=== PATIENT | female | born 1960 | race African-American/Black ===

== ENCOUNTER 2016-10-09 12:14 | Emergency (ER) | payer MEDICAID ==
[~2016-10-09] VITALS: Ht 160 cm; Wt 72.1 kg
--- NOTE | 2016-10-09 12:14 | NUR ---
BROUGHT BACK TO BED #7 AND TRIAGED. REPORT GIVEN TO DALLIN
[2016-10-09 12:15] VITALS: BP 137/88; PULSE 107; RESP 19; TEMP 98.2; O2SAT 94
--- NOTE | 2016-10-09 12:30 | NUR ---
Dr. Garcia at bedside to assess pt.
[2016-10-09] MEDS ORDERED: KETOROLAC TROMETHAMINE 30 MG VIAL IVP ONE (12:45)
[2016-10-09 13:06] LABS: BASOPHILS % (AUTO) 0.3 % (0.0-2.0); EOSINOPHILS # (AUTO) 0.3 K/uL (0.0-0.4); EOSINOPHILS % (AUTO) 4.8 % (0.0-4.0); HEMATOCRIT 36.1 % (36-48); HEMOGLOBIN 11.6 g/dL (12.0-16.0); LYMPHOCYTES # (AUTO) 1.1 K/uL (1.0-5.5); LYMPHOCYTES % (AUTO) 20.8 % (20.5-51.5); MEAN CORPUSCULAR HEMOGLOBIN 27 pg (27-31); MEAN CORPUSCULAR HGB CONC 32 % (32-36); MEAN CORPUSCULAR VOLUME 82 fL (79.0-98.0); MONOCYTES # (AUTO) 0.6 K/uL (0.0-1.0); NEUTROPHILS # (AUTO) 3.4 K/uL (1.8-7.7); NEUTROPHILS % (AUTO) 62.1 % (40.0-70.0); PLATELET COUNT (AUTO) 138 K/uL (130-430); RED BLOOD CELL COUNT(AUTO) 4.38 MIL/uL (4.2-6.2); RED CELL DISTRIBUTION WIDTH 13.6 % (9.0-15.0); WHITE BLOOD COUNT (AUTO) 5.4 K/uL (4.8-10.8)
--- NOTE | 2016-10-09 13:25 | NUR ---
# 24 gauge angiocath placed to R wrist. Use of asceptic technique. Opsite placed over site. Blood return noted. Flushed with 10 cc of normal saline. No evidence of infiltration noted. Patient tolerated well.
[2016-10-09 13:30] LABS: CREATININE 0.66 mg/dL (0.55-1.30); POTASSIUM 3.5 mmol/L (3.5-5.1)
[2016-10-09 13:32] LABS: INR 0.9 (0.8-1.2)
[2016-10-09 13:35] LABS: ALBUMIN 3.4 g/dL (3.4-4.8); TOTAL BILIRUBIN 0.1 mg/dL (0.0-1.0); TOTAL PROTEIN, SERUM 7.6 g/dL (6.4-8.3)
[2016-10-09 14:22] VITALS: BP 128/76; PULSE 89; RESP 20; TEMP 98.1; O2SAT 100
--- NOTE | 2016-10-09 14:22 | NUR ---
Patient given written and verbal discharge instructions and verbalizes understanding. ER MD discussed with patient the results and treatment provided. Patient in stable condition. ID arm band removed. IV catheter removed intact and dressing applied, no active bleeding. Rx of Codeine/Promethizine, Augmentin, and Ibuprofen given. Patient educated on pain management and to follow up with PMD. Pain Scale 0/10. Opportunity for questions provided and answered.
== END 2016-10-09 14:22 | disposition home or self-care (01) ==
LOC: SED 12:14
DX: J40 Bronchitis, not specified as acute or chronic (principal)
CPT/HCPCS: 36415; 71010; 80053; 83880; 84484; 85025; 85379; 85610; 85730; 93005; 96374; 99285; J1885

== ENCOUNTER 2017-02-21 08:04 | Emergency (ER) | payer MEDICAID ==
[~2017-02-21] VITALS: Ht 160 cm; Wt 73.5 kg
[2017-02-21 08:05] VITALS: BP_SYST 116
--- NOTE | 2017-02-21 08:10 | NUR ---
BROUGHT BACK TO BED #7 AND TRIAGED. REPORT GIVEN TO DEBI
--- NOTE | 2017-02-21 08:25 | NUR ---
Pt states has had left lower back pain for 1 week, denies any known mechanism of injury. States has chronic back pain from work injury years ago. Able to ambulate with ease, no deformities noted. No other complaints/injuries per pt or noted.
--- NOTE | 2017-02-21 08:26 | NUR ---
ER Dr. Garcia at bedside examining patient.
[2017-02-21 09:20] VITALS: BP_SYST 115
--- NOTE | 2017-02-21 09:20 | NUR ---
Patient given written and verbal discharge instructions and verbalizes understanding. ER MD discussed with patient the results and treatment provided. Patient in stable condition. ID arm band removed. Rx of ibuprofen given. Patient educated on pain management and to follow up with PMD within 2 days. Opportunity for questions provided and answered.
== END 2017-02-21 09:20 | disposition home or self-care (01) ==
LOC: SED 08:04
DX: S39.012A Strain of muscle, fascia and tendon of lower back, initial encounter (principal); X58.XXXA Exposure to other specified factors, initial encounter; Y93.89 Activity, other specified; Y92.89 Other specified places as the place of occurrence of the external cause; Y99.8 Other external cause status
CPT/HCPCS: 72110; 99284